=== PATIENT | male | born 1990 | race Caucasian/White ===

== ENCOUNTER → 2019-09-03 | Outpatient (REF) | payer OTHER ==
[2019-09-03 16:40] LABS: APPEARANCE, URINE CLOUDY (CLEAR); BACTERIA, URINE AUTO NEGATIVE (NEGATIVE); BILIRUBIN, URINE AUTO NEGATIVE (NEGATIVE); BLOOD, URINE BLOOD NEGATIVE (NEGATIVE); COLOR, URINE YELLOW (YELLOW); GLUCOSE, URINE (UA) AUTO NEGATIVE (NEGATIVE); KETONE, URINE AUTO NEGATIVE (NEGATIVE); LEUKOCYTE ESTERASE, URINE AUTO NEGATIVE (NEGATIVE); NITRITE, URINE AUTO NEGATIVE (NEGATIVE); PROTEIN, URINE AUTO NEGATIVE (NEGATIVE); RBC, URINE AUTO 0 /HPF (0-3); SPECIFIC GRAVITY URINE AUTO 1.018 (1.002-1.035); SQUAMOUS EPITHELIAL CELL UR AU 0 /HPF (0-6); UROBILINOGEN, URINE AUTO 0.2 mg/dL (0.0-2.0); WBC, URINE AUTO 0 /HPF (0-3)
== END ==
LOC: M SFHCCLAY 10:07
PROVIDERS: ATTEND Family Medicine
DX: N45.1 Epididymitis (principal)

== ENCOUNTER → 2019-09-05 | Outpatient (CLI) | payer OTHER ==
--- NOTE | 2019-09-05 11:14 | REP ---
SCROTAL ULTRASOUND: Real-time sonographic evaluation of the scrotum and contents performed. Testicles are normal in size and echotexture, right testicle measuring 4.2 x 1.9 x 3.0 cm and left testicle 4.4 x 1.9 x 3.0 cm. There is no testicular mass or torsion. Blood flow is seen in each testicle with duplex Doppler evaluation. A calcification is seen in the lower pole of the right testicle measuring 3 mm in diameter. There is also a calcification in the lower pole of the left testicle 2 mm in diameter. Epididymis appears unremarkable bilaterally. There are very small hydroceles. IMPRESSION: No testicular mass or torsion. Electronically Signed by Marcelino Ramires MD 09/05/2019 12:08 P
== END ==
LOC: M RAD 09:42
PROVIDERS: ATTEND Family Medicine
DX: N50.812 Left testicular pain (principal); N45.1 Epididymitis

== ENCOUNTER → 2020-03-08 | Outpatient (REF) | payer OTHER | LOC: M SFHCCLAY 15:59 | PROVIDERS: ATTEND Physician Assistant | DX: Z11.2 Encounter for screening for other bacterial diseases (principal) ==

== ENCOUNTER 2020-12-15 11:37 | Emergency (ER) | payer OTHER ==
[~2020-12-15] VITALS: Ht 177.8 cm; Wt 61.4 kg
[2020-12-15 12:45] LABS: BASO % 0.2 % (0.0-1.0); HEMATOCRIT 46.1 % (42.0-52.0); LYMPH # 1.2 10^3/uL (1.5-5.0); LYMPH % 12.3 % (24.0-44.0); MEAN CORPUSCULAR HGB CONC 32.5 g/dl (32.0-36.5); MEAN CORPUSCULAR VOLUME 89.2 fl (80.0-96.0); MONO # 0.3 10^3/uL (0.0-0.8); MONO % 3.4 % (2.0-8.0); NEUTROPHILS # 7.9 10^3/uL (1.5-8.5); NEUTROPHILS % 83.7 % (36.0-66.0); PLATELET COUNT, AUTOMATED 285 10^3/uL (150-450); RED BLOOD COUNT 5.17 10^6/uL (4.30-6.10); WHITE BLOOD COUNT 9.4 10^3/uL (4.0-10.0)
[2020-12-15 13:05] LABS: ALBUMIN 3.8 GM/DL (3.2-5.2); ALT/SGPT 46 U/L (12-78); BILIRUBIN,DIRECT 0.2 MG/DL (0.0-0.2); BILIRUBIN,TOTAL 0.5 MG/DL (0.2-1.0); BLOOD UREA NITROGEN 11 MG/DL (7-18); CALCIUM LEVEL 9.3 MG/DL (8.5-10.1); CARBON DIOXIDE LEVEL 30 MEQ/L (21-32); CHLORIDE LEVEL 104 MEQ/L (98-107); CREATININE FOR GFR 0.71 MG/DL (0.70-1.30); GLOMERULAR FILTRATION RATE > 60.0 (>60); GLUCOSE, FASTING 106 MG/DL (70-100); LIPASE 93 U/L (73-393); SODIUM LEVEL 142 MEQ/L (136-145); TOTAL PROTEIN 7.1 GM/DL (6.4-8.2)
[2020-12-15] MEDS ORDERED: NS 1,000 ML IV ONE (15:45)
[2020-12-15 16:28] LABS: C REACTIVE PROTEIN QUANTITATIV 0.53 MG/DL (0.00-0.30)
[2020-12-15] MEDS: GASTROGRAFIN SOLUTION 30ML PO SCH ×2 (16:54→17:32)
--- NOTE | 2020-12-15 16:54 | REP ---
INDICATION: L testicular pain COMPARISON: 09/05/2019 TECHNIQUE: Ramires scale and color Doppler evaluation using linear and curved array transducer with color Doppler evaluation. FINDINGS: The testicles and epididymi are stable and relatively normal in contour, size, echogenicity, vascularity and overall appearance. Few scattered parenchymal macrocalcifications are again identified measuring 3 mm in the right testicle and up to 1.2 mm in the left testicle. There is no evidence for intratesticular mass lesion, infectious/inflammatory process, or torsion. No obvious hydroceles. Left-sided varicoceles are identified measuring up to 4 mm diameter without significant change on Valsalva. Right testicle measures 4.3 x 1.9 x 2.7 cm. Left testicle measures 4.4 x 2.6 X 2.0 cm. IMPRESSION: 1. Left-sided varicoceles up to 4 mm. 2. Otherwise relatively stable/normal examination. <Electronically signed by Uriel Linares > 12/15/20 [id number]
[2020-12-15 16:58] LABS: ERYTHROCYTE SEDIMENTATION RATE 4 mm/hr (0-15)
[2020-12-15] MEDS ORDERED: ISOVUE-370 76% 100ML VIAL As Ordered ONE (18:30)
--- NOTE | 2020-12-15 19:25 | REPVR ---
PROCEDURE INFORMATION: Exam: CT Abdomen And Pelvis With Contrast Exam date and time: 12/15/2020 6:35 PM Age: 30 years old Clinical indication: Other: Llq pain, weight loss, n/v/d TECHNIQUE: Imaging protocol: Computed tomography of the abdomen and pelvis with contrast. Radiation optimization: All CT scans at this facility use at least one of these dose optimization techniques: automated exposure control; mA and/or kV adjustment per patient size (includes targeted exams where dose is matched to clinical indication); or iterative reconstruction. Contrast material: ISOVUE 370; Contrast volume: 100 ml; Contrast route: INTRAVENOUS (IV); COMPARISON: Scrotal, US 12/15/2020 4:29 PM FINDINGS: Liver: Normal. No mass. Gallbladder and bile ducts: Normal. No calcified stones. No ductal dilation. Pancreas: Normal. No ductal dilation. Spleen: Normal. No splenomegaly. Adrenal glands: Normal. No mass. Kidneys and ureters: Normal. No hydronephrosis. Stomach and bowel: Diffuse thickening of the wall of the rectosigmoid colon with mild wall enhancement, clinical correlation to exclude sigmoiditis possibly related to inflammatory bowel disease suggested. No gross diverticular disease demonstrated. There is apparent thickening of the wall of a small bowel in the right lower quadrant. Evaluation of this region of small bowel is limited by lack of suitable intraluminal contrast density. There is also a possible filling defect within this loop which is mildly dilated at approximately 2.5 cm. Further evaluation with small-bowel series or enterography suggested if clinically desired. Appendix: No evidence of appendicitis. Intraperitoneal space: Unremarkable. No free air. No significant fluid collection. Vasculature: Unremarkable. No abdominal aortic aneurysm. Lymph nodes: Unremarkable. No enlarged lymph nodes. Urinary bladder: Unremarkable as visualized. Reproductive: The prostate gland demonstrates mild hyperplasia. Bones/joints: Moderate central spinal stenosis L3-L4 and L4-L5. Bulging annulus L5-S1 without neural compromise. Soft tissues: Unremarkable. IMPRESSION: 1. Diffuse thickening of the wall of the rectosigmoid colon with mild wall enhancement, clinical correlation to exclude sigmoiditis possibly related to inflammatory bowel disease suggested. No gross diverticular disease demonstrated. 2. Mild prostatic hyperplasia. 3. There is apparent thickening of the wall of a small bowel in the right lower quadrant. Evaluation of this region of small bowel is limited by lack of suitable intraluminal contrast density. There is also a possible filling defect within this loop which is mildly dilated at approximately 2.5 cm. Further evaluation with small-bowel series or enterography suggested if clinically desired. Apparent abnormal loop of small bowel in the right lower quadrant as described above. Further evaluation suggested. Electronically signed by: Garrett Doyle On 12/15/2020 19:24:46 PM
[2020-12-15] MEDS ORDERED: PENT500C PO (20:57)
[2020-12-15] MEDS ORDERED: PRED20TA PO ×2 (20:57→21:18)
[2020-12-15 21:01] VITALS: BP 142/84
[2020-12-15] MEDS ORDERED: MESALAMINE 250 MG CR CAP PO STA (21:17)
[2020-12-15] MEDS ORDERED: predniSONE 20 MG TAB PO ONE (21:20)
--- NOTE | 2020-12-17 08:16 | ED PDOC ---
Post-Departure Follow-Up radiology report faxed to Concetta Lyons MD Dec 17, 2020 08:16
== END 2020-12-15 22:03 | disposition home or self-care (01) ==
LOC: M ED 11:37
DX: E86.0 Dehydration (principal); K51.90 Ulcerative colitis, unspecified, without complications; N40.0 Benign prostatic hyperplasia without lower urinary tract symptoms; I86.1 Scrotal varices; K21.9 Gastro-esophageal reflux disease without esophagitis; F17.210 Nicotine dependence, cigarettes, uncomplicated; F12.20 Cannabis dependence, uncomplicated
CPT/HCPCS: 74177; 76870; 80048; 80076; 81001; 83690; 85025; 85652; 86140; 93976; 96360; 96361; 99283; J7512; Q9963; Q9967